=== PATIENT | female | born 1945 | race Caucasian/White ===

== ENCOUNTER 2023-07-28 12:52 | Inpatient (IN) ==
[2023-07-28] MEDS ORDERED: Albuterol (2.5 MG) 0.5 % CONC 0.5 ML NEB.SOLN INH ONE (13:25)
[2023-07-28] MEDS ORDERED: Ondansetron 4 mg VIAL 2 MG/ML 2 ml VIAL IV ONE (13:27)
[2023-07-28] MEDS ORDERED: fentaNYL 100 mcg/2 ml 50 MCG/ML VIAL IV SLOW PU ONE ×2 (13:27→16:48)
[2023-07-28] MEDS: NS 0.9% 1000 ml BAG 1,000 ML IV SCH ×2 (13:52→22:29)
[2023-07-28 13:54] LABS: Venous Bicarbonate HCO3 20.6 mmol/L (24-28)
[2023-07-28 14:06] LABS: ABS Lymphocytes 0.3 10^3/uL (1.0-4.8); ABS Monocytes 0.1 10^3/uL (0.0-0.9); ABS Neutrophils 2.2 10^3/uL (1.5-7.6); ABS Nucleated RBC 0.01 10^3/ul; Eosinophil % 0.6 %; Hematocrit 25.4 % (35-45); Hemoglobin 8.9 g/dL (11.5-14.3); Lymphocyte % 10.3 %; Mean Corpuscular Hemoglobin 49.2 pg (27-33); Mean Corpuscular Hgb Conc 34.9 g/dL (31-36); Nucleated Red Blood Cells % 0.2 %/100WBC (0.0-0.8); Platelet Count 204 10^3/uL (150-450); Red Cell Distribution Width 19.3 % (12-17); White Blood Count 2.6 10^3/uL (3.8-11.8)
[2023-07-28 14:15] LABS: Albumin/Globulin Ratio 1.3 (1-3); Calcium 8.9 mg/dL (8.6-10.3); Creatinine, Serum 1.11 mg/dL (0.51-0.95); Potassium 4.5 mmol/L (3.5-5.0); Total Bilirubin 1.2 mg/dL (0.2-1.0); eGFR CKD-EPI 50.2 (>60)
[2023-07-28 14:17] LABS: Activated Partial Thrombo Time 37.3 seconds (26.0-38.0); INR 1.58 (0.83-1.13)
[2023-07-28 14:26] LABS: PCO2 Arterial 32 mmHg (35-45); PO2 Arterial 64 mmHg (80-100)
[2023-07-28 15:28] LABS: High Sensitivity Troponin 1 Hr 3 pg/mL (<15)
[2023-07-28] MEDS ORDERED: Levalbuterol HFA INHALER MDI INH PRN (18:34)
[2023-07-28] MEDS ORDERED: Levalbuterol 0.63MG/3ML NEB UNIT OF USE INH ONE (18:37)
[2023-07-28] MEDS ORDERED: Mometasone/Formoter 200/5 MDI INH SCH (19:00)
[2023-07-28] MEDS: Mometasone/Formoter 200/5 MDI INH SCH (21:15)
[2023-07-28 21:21] LABS: Activated Partial Thrombo Time 40.3 seconds (26.0-38.0); INR 1.51 (0.83-1.13)
[2023-07-28] MEDS: Heparin 5000 UNITS/ML 1 mL VIAL SUBCUT SCH (22:28)
[2023-07-28 22:29] LABS: Total Bilirubin 1.2 mg/dL (0.2-1.0)
[2023-07-29 01:21] LABS: Direct Bilirubin 0.1 mg/dL (0.03-0.18); Indirect Bilirubin 1.1 mg/dL (0.3-1.0)
[2023-07-29] MEDS: NS 0.9% 1000 ml BAG 1,000 ML IV SCH (05:23)
[2023-07-29] MEDS: Heparin 5000 UNITS/ML 1 mL VIAL SUBCUT SCH ×3 (05:28→21:31)
[2023-07-29 06:10] LABS: ABS Lymphocytes 0.2 10^3/uL (1.0-4.8); ABS Neutrophils 2.8 10^3/uL (1.5-7.6); Eosinophil % 0.1 %; Hematocrit 23.2 % (35-45); Lymphocyte % 5.8 %; Mean Corpuscular Hemoglobin 48.8 pg (27-33); Mean Corpuscular Hgb Conc 34.6 g/dL (31-36); Mean Corpuscular Volume 140.9 fL (80-97); Mean Platelet Volume 7.5 fL (7.5-11.2); Nucleated Red Blood Cells % 0.1 %/100WBC (0.0-0.8); Platelet Count 156 10^3/uL (150-450); Red Blood Count 1.64 10^6/uL (3.63-4.92); Red Cell Distribution Width 20.1 % (12-17)
[2023-07-29 06:10] LABS: Calcium 8.6 mg/dL (8.6-10.3); Creatinine, Serum 0.98 mg/dL (0.51-0.95); Potassium 4.9 mmol/L (3.5-5.0); eGFR CKD-EPI 58.3 (>60)
[2023-07-29] MEDS: Mometasone/Formoter 200/5 MDI INH SCH ×2 (08:41→20:22)
[2023-07-29] MEDS ORDERED: Albuterol HFA INHALER 8 gm MDI INH PRN (09:03)
[2023-07-29] MEDS ORDERED: Enoxaparin 40 MG/0.4 ML SYR SUBCUT SCH (10:00)
[2023-07-29 14:39] LABS: Hematocrit 22.2 % (35-45); Hemoglobin 7.7 g/dL (11.5-14.3)
[2023-07-29] MEDS: Albuterol HFA INHALER 8 gm MDI INH SCH ×3 (15:23→23:15)
[2023-07-30] MEDS: Albuterol HFA INHALER 8 gm MDI INH SCH ×3 (04:07→11:46)
[2023-07-30] MEDS: Heparin 5000 UNITS/ML 1 mL VIAL SUBCUT SCH ×2 (05:29→15:23)
[2023-07-30 07:46] LABS: Creatinine, Serum 1.13 mg/dL (0.51-0.95); Potassium 4.7 mmol/L (3.5-5.0); eGFR CKD-EPI 49.2 (>60)
[2023-07-30] MEDS: Mometasone/Formoter 200/5 MDI INH SCH ×2 (08:03→19:24)
[2023-07-30] MEDS ORDERED: Furosemide 40 mg/4 ml IV VIAL IV SLOW PU ONE (08:41)
[2023-07-30] MEDS ORDERED: methylPREDNISolone SOD SUCC 125 mg 2 ML VIAL IV ONE (09:28)
[2023-07-30] MEDS ORDERED: Polyethylene Glycol 3350 17 GM PACKET PO PRN (09:36)
[2023-07-30] MEDS ORDERED: Senna TAB 8.6 mg TAB PO PRN (09:36)
[2023-07-30 09:43] LABS: Hematocrit 25.5 % (35-45); Hemoglobin 9.1 g/dL (11.5-14.3); Mean Corpuscular Hemoglobin 45.8 pg (27-33); Mean Corpuscular Hgb Conc 35.8 g/dL (31-36); Mean Platelet Volume 7.7 fL (7.5-11.2); Platelet Count 139 10^3/uL (150-450); Red Blood Count 1.99 10^6/uL (3.63-4.92); Red Cell Distribution Width 31.7 % (12-17); White Blood Count 3.4 10^3/uL (3.8-11.8)
[2023-07-30 10:21] LABS: ABS Lymphocytes 0.2 10^3/uL (1.0-4.8); ABS Monocytes 0.1 10^3/uL (0.0-0.9); ABS Neutrophils 3.1 10^3/uL (1.5-7.6); ABS Nucleated RBC 0.01 10^3/ul; Eosinophil % 0.1 %; Lymphocyte % 6.4 %; Nucleated Red Blood Cells % 0.4 %/100WBC (0.0-0.8)
[2023-07-30 10:28] LABS: Anisocytosis 3+; Macrocytosis 3+
[2023-07-30] MEDS ORDERED: Naloxone 0.4 mg VIAL 0.4 mg/ml 1 ml VIAL IV PUSH PRN (11:15)
[2023-07-30] MEDS ORDERED: Midazolam 10 mg/10 ml VIAL 1 mg/ml 10 ml VIAL (10 mg) IV SLOW PU ONE (11:15)
[2023-07-30] MEDS ORDERED: fentaNYL 100 mcg/2 ml 50 MCG/ML VIAL IV SLOW PU ONE (11:15)
[2023-07-30] MEDS ORDERED: Flumazenil 0.5 mg/5 ml 0.1 MG/ML 5 ml VIAL IV PRN (11:15)
[2023-07-30] MEDS ORDERED: Heparin 1,000 UNIT/ML 10 ml (10,000 UNITS) CATHLAB/DIALYSIS ONE (11:42)
[2023-07-30] MEDS ORDERED: Iohexol 350 (CONTRAST) 100 ML PAK IV ONE (11:42)
[2023-07-30] MEDS ORDERED: Heparin 2 UNITS/ML 1000 mls 2,000 ML IV ONE (11:42)
[2023-07-30] MEDS ORDERED: Lidocaine 1% MPF 5 ML VIAL ONE (11:42)
[2023-07-30] MEDS ORDERED: fentaNYL 100 mcg/2 ml 50 MCG/ML VIAL ONE (11:42)
[2023-07-30] MEDS ORDERED: Midazolam 5 mg/5 ml VIAL 1 mg/ml 5 ml VIAL (5 mg) ONE (11:42)
[2023-07-30 12:37] LABS: Venous Bicarbonate HCO3 20.3 mmol/L (24-28)
[2023-07-30 12:39] LABS: PCO2 Arterial 32 mmHg (35-45)
[2023-07-30 12:42] LABS: PO2 Arterial 53 mmHg (80-100)
[2023-07-30 12:43] LABS: POC SO2 51 %
[2023-07-30] MEDS ORDERED: Albuterol HFA INHALER 8 gm MDI INH PRN (14:22)
[2023-07-30 18:38] VITALS: BP 114/58
== END 2023-07-30 19:45 | disposition short-term general hospital (02) | DRG 535 ==
LOC: ED 12:52 → EDHOLD 12:52 → SUATTDRO 17:07 → SSU 20:34
PROVIDERS: ADMIT Internal Medicine; ATTEND Internal Medicine